=== PATIENT | female | born 2000 | race Caucasian/White ===

== ENCOUNTER 2021-06-25 16:57 | Inpatient (IN) ==
--- NOTE | 2021-06-25 17:32 | Emergency Department Note ---
Impression & Plan Suicidal ideations, Mood disorder ED Provider Note NAME: RISA BAHENA AGE: 20 SEX: F : 2000 ARRIVES VIA: Walk-In INFORMANT: Patient ED PROVIDER(S): Harry Fitch DO CHIEF COMPLAINT: Suicidal plan HPI: Patient is a 20-year-old female who presents to the ER for suicidal plan to overdose on her medications. She has had this plan for the past week. She was feeling so uncomfortable and could not trust herself with these medications and gave these medications to a friend. She denies any auditory or visual hallucinations. She does have a history of bipolar and psychotic features. She denies any headache or change in vision. No belly pain, nausea, vomiting, or diarrhea. She notes that she did cut her arms as she was mad earlier today. She feels unsafe going home does want to come in. She is referred in. ROS: See above HPI for pertinent positives & negatives. A total of 10 systems reviewed and were otherwise negative. PAST MEDICAL HISTORY:See Below PAST SURGICAL HISTORY:See Below FAMILY HISTORY:See Below SOCIAL HISTORY:See Below HOME MEDICATIONS:See Below ALLERGIES:See Below VITALS:See Below PHYSICAL EXAMINATION: GENERAL: Sitting up in bed, alert, well appearing, well nourished, no distress, non-toxic EYE EXAM: normal conjunctiva. OROPHARYNX: no exudate, no erythema, lips, buccal mucosa, and tongue normal and mucous membranes are moist NECK: supple, no nuchal rigidity, no adenopathy, non-tender LUNGS: Clear to auscultation. Normal chest wall mechanics HEART: no murmurs, S1 normal and S2 normal ABDOMEN: abdomen soft, non-tender, normo-active bowel sounds, no masses, no rebound or guarding. UPPER EXTREMITIES: upper extremities are grossly normal. SKIN: Small superficial linear abrasions on left upper extremity LOWER EXTREMITIES: No pitting edema. NEURO EXAM: Normal sensorium, cranial nerves II-XII grossly intact, normal speech, no gross weakness of arms, no gross weakness of legs. PSYCH: Admits to a suicidal plan to overdose on medications. No auditory visualizations. MEDICAL DECISION MAKING: Patient is a 20-year-old female who presents the ER for suicidal plan to overdose on medications. She does not feel safe at home anymore and cannot trust herself. She denies any auditory visual hallucinations. She is a past medical history of bipolar disorder. Labs show no significant leukocytosis or anemia. BMP with LFTs bilirubin and hCG was negative. Total protein slightly elevated. Urine was clean. Tox was negative. Alcohol was negative. Covid was negative. Patient was seen and evaluated and agreeable to coming on 201 referred to 3 S for admission. Triage Nursing notes reviewed. Limited review of prior medical records performed Vital Signs: reviewed and remarkable for no significant abnormalities Differential diagnosis: Mood disorder, infection, hypoglycemia, electrolyte abnormalities, cardiac sources, intracerebral event, toxicologic, trauma, neurologic, as well as other pathologies. ER treatment provided: See below Diagnostics interpreted by me: ECG: none Cardiac Monitoring: An order was placed for continuous cardiac monitoring. The monitor shows a rate of 80 with sinus rhythm. Laboratory studies: As stated above and show below. Imaging studies: See below Consultation(s): none Procedures: none Critical Care: None Past Med/Surg History Social History Smoking Status: Never smoker Preferred Language: Qatari Communication Ability: Effective Coating Technician Required: No Beliefs That Will Affect Care: None Feels Safe at Home: Yes Assistive Devices: Glasses Allergies Allergies Allergy/AdvReac Type Severity Reaction Status Date / Time ibuprofen AdvReac Unverified 06/25/21 23:55 Home Meds Home Medications Medication Instructions Recorded Confirmed Tl (28) 1 tab PO DAILY 06/25/21 06/25/21 hydroxyzine HCl 25 mg PO 06/25/21 risperidone 0.5 mg tablet 1.5 mg PO DAILY 06/25/21 06/25/21 Results & Data (ED) Vital Signs Vital Signs - 24 hr 06/25/21 20:07 Pulse Rate [Finger] 87 Respiratory Rate 20 Respiratory Depth Normal Blood Pressure [Left Arm] 118/70 Blood Pressure Mean [Left Arm] 86 Pulse Oximetry 98 Oxygen Delivery Method Room Air Laboratory Data Result diagrams: 06/25/21 17:42 06/25/21 17:42 Lab Results 06/25/21 06/25/21 06/25/21 Range/Units 17:42 17:42 17:42 WBC 5.95 (4.8-10.8) K/uL RBC 4.91 (4.2-5.4) M/uL Hgb 15.4 (12.0-16.0) g/dL Hct 44.1 (37-47) % MCV 89.8 (80-100) fL MCH 31.4 (25-34) pg MCHC 34.9 (32-36) g/dL RDW Std Deviation 41.4 (36.4-46.3) fL RDW Coeff of Shyann 12.8 (11.5-14.5) % Plt Count 287 (130-400) K/uL MPV 9.7 (7.4-10.4) fL Immature Gran % (Auto) 0.2 % Neut % (Auto) 52.9 % Lymph % (Auto) 42.9 % [place] % (Auto) 3.2 % Eos % (Auto) 0.5 % Baso % (Auto) 0.3 % Neut # (Auto) 3.15 (1.4-6.5) K/uL Lymph # (Auto) 2.55 (1.2-3.4) K/uL [place] # (Auto) 0.19 (0.11-0.59) K/uL Eos # (Auto) 0.03 (0-0.5) K/uL Baso # (Auto) 0.02 (0-0.2) K/uL Immature Gran # (Auto) 0.01 (0.00-0.02) K/uL Sodium 137 (136-145) mmol/L Potassium 3.7 (3.5-5.1) mmol/L Chloride 104 (98-107) mmol/L Carbon Dioxide 28 (21-32) mmol/L Anion Gap 5.0 (3-11) BUN 7 (7-18) mg/dl Creatinine 0.87 (0.6-1.2) mg/dl Est Cr Clr Drug Dosing 84.1 ml/min Est GFR ( Amer) 111.9 ml/min Est GFR (Non-Af Amer) 96.6 ml/min BUN/Creatinine Ratio 8.3 L (10-20) Glucose 94 (70-99) mg/dl Calcium 9.4 (8.5-10.1) mg/dl Total Bilirubin 0.3 (0.2-1) mg/dl AST 17 (15-37) U/L ALT 18 (12-78) U/L Alkaline Phosphatase 90 (45-117) U/L Total Protein 8.8 H (6.4-8.2) gm/dl Albumin 4.4 (3.4-5.0) gm/dl Globulin 4.4 H (2.5-4.0) gm/dl Albumin/Globulin Ratio 1.0 (0.9-2) TSH 1.580 (0.300-4.500) uIu/ml HCG, Qual (Negative) Urine Color Urine Appearance (Clear) Urine pH (4.5-7.5) Ur Specific [place] (1.000-1.030) Urine Protein (Negative) Urine Glucose (UA) (Negative) Urine Ketones (Negative) Urine Blood (Negative) Urine Nitrite (Negative) Urine Bilirubin (Negative) Urine Urobilinogen (Negative) Ur Leukocyte Esterase (Negative) Salicylates < 1.7 L (2.8-20) mg/dl Urine Opiates Screen (Neg) Ur Methadone, Qual (Neg) Acetaminophen < 2 L (10-30) ug/ml Urine Barbiturates (Neg) Ur Phencyclidine (PCP) (Neg) U Amphetamin/Meth Scrn (Neg) MDMA (Ecstasy) Screen (Neg) U Benzodiazepines Scrn (Neg) Ur Cocaine Metabolite (Neg) U Marijuana (THC) Screen (Neg) Ethyl Alcohol mg/dL (0-3) mg/dl COVID-19 Eval Order SARS-CoV-2, RNA, NAAT (NEGATIVE) 06/25/21 06/25/21 06/25/21 Range/Units 17:42 17:42 17:42 WBC (4.8-10.8) K/uL RBC (4.2-5.4) M/uL Hgb (12.0-16.0) g/dL Hct (37-47) % MCV (80-100) fL MCH (25-34) pg MCHC (32-36) g/dL RDW Std Deviation (36.4-46.3) fL RDW Coeff of Shyann (11.5-14.5) % Plt Count (130-400) K/uL MPV (7.4-10.4) fL Immature Gran % (Auto) % Neut % (Auto) % Lymph % (Auto) % [place] % (Auto) % Eos % (Auto) % Baso % (Auto) % Neut # (Auto) (1.4-6.5) K/uL Lymph # (Auto) (1.2-3.4) K/uL [place] # (Auto) (0.11-0.59) K/uL Eos # (Auto) (0-0.5) K/uL Baso # (Auto) (0-0.2) K/uL Immature Gran # (Auto) (0.00-0.02) K/uL Sodium (136-145) mmol/L Potassium (3.5-5.1) mmol/L Chloride (98-107) mmol/L Carbon Dioxide (21-32) mmol/L Anion Gap (3-11) BUN (7-18) mg/dl Creatinine (0.6-1.2) mg/dl Est Cr Clr Drug Dosing ml/min Est GFR ( Amer) ml/min Est GFR (Non-Af Amer) ml/min BUN/Creatinine Ratio (10-20) Glucose (70-99) mg/dl Calcium (8.5-10.1) mg/dl Total Bilirubin (0.2-1) mg/dl AST (15-37) U/L ALT (12-78) U/L Alkaline Phosphatase (45-117) U/L Total Protein (6.4-8.2) gm/dl Albumin (3.4-5.0) gm/dl Globulin (2.5-4.0) gm/dl Albumin/Globulin Ratio (0.9-2) TSH (0.300-4.500) uIu/ml HCG, Qual Negative (Negative) Urine Color Yellow Urine Appearance Clear (Clear) Urine pH 8.5 H (4.5-7.5) Ur Specific [place] 1.016 (1.000-1.030) Urine Protein Negative (Negative) Urine Glucose (UA) Negative (Negative) Urine Ketones Negative (Negative) Urine Blood Negative (Negative) Urine Nitrite Negative (Negative) Urine Bilirubin Negative (Negative) Urine Urobilinogen Negative (Negative) Ur Leukocyte Esterase Negative (Negative) Salicylates (2.8-20) mg/dl Urine Opiates Screen (Neg) Ur Methadone, Qual (Neg) Acetaminophen (10-30) ug/ml Urine Barbiturates (Neg) Ur Phencyclidine (PCP) (Neg) U Amphetamin/Meth Scrn (Neg) MDMA (Ecstasy) Screen (Neg) U Benzodiazepines Scrn (Neg) Ur Cocaine Metabolite (Neg) U Marijuana (THC) Screen (Neg) Ethyl Alcohol mg/dL < 3.0 (0-3) mg/dl COVID-19 Eval Order SARS-CoV-2, RNA, NAAT (NEGATIVE) 06/25/21 06/25/21 06/25/21 Range/Units 17:42 18:00 18:00 WBC (4.8-10.8) K/uL RBC (4.2-5.4) M/uL Hgb (12.0-16.0) g/dL Hct (37-47) % MCV (80-100) fL MCH (25-34) pg MCHC (32-36) g/dL RDW Std Deviation (36.4-46.3) fL RDW Coeff of Shyann (11.5-14.5) % Plt Count (130-400) K/uL MPV (7.4-10.4) fL Immature Gran % (Auto) % Neut % (Auto) % Lymph % (Auto) % [place] % (Auto) % Eos % (Auto) % Baso % (Auto) % Neut # (Auto) (1.4-6.5) K/uL Lymph # (Auto) (1.2-3.4) K/uL [place] # (Auto) (0.11-0.59) K/uL Eos # (Auto) (0-0.5) K/uL Baso # (Auto) (0-0.2) K/uL Immature Gran # (Auto) (0.00-0.02) K/uL Sodium (136-145) mmol/L Potassium (3.5-5.1) mmol/L Chloride (98-107) mmol/L Carbon Dioxide (21-32) mmol/L Anion Gap (3-11) BUN (7-18) mg/dl Creatinine (0.6-1.2) mg/dl Est Cr Clr Drug Dosing ml/min Est GFR ( Amer) ml/min Est GFR (Non-Af Amer) ml/min BUN/Creatinine Ratio (10-20) Glucose (70-99) mg/dl Calcium (8.5-10.1) mg/dl Total Bilirubin (0.2-1) mg/dl AST (15-37) U/L ALT (12-78) U/L Alkaline Phosphatase (45-117) U/L Total Protein (6.4-8.2) gm/dl Albumin (3.4-5.0) gm/dl Globulin (2.5-4.0) gm/dl Albumin/Globulin Ratio (0.9-2) TSH (0.300-4.500) uIu/ml HCG, Qual (Negative) Urine Color Urine Appearance (Clear) Urine pH (4.5-7.5) Ur Specific [place] (1.000-1.030) Urine Protein (Negative) Urine Glucose (UA) (Negative) Urine Ketones (Negative) Urine Blood (Negative) Urine Nitrite (Negative) Urine Bilirubin (Negative) Urine Urobilinogen (Negative) Ur Leukocyte Esterase (Negative) Salicylates (2.8-20) mg/dl Urine Opiates Screen Neg (Neg) Ur Methadone, Qual Neg (Neg) Acetaminophen (10-30) ug/ml Urine Barbiturates Neg (Neg) Ur Phencyclidine (PCP) Neg (Neg) U Amphetamin/Meth Scrn Neg (Neg) MDMA (Ecstasy) Screen Neg (Neg) U Benzodiazepines Scrn Neg (Neg) Ur Cocaine Metabolite Neg (Neg) U Marijuana (THC) Screen Neg (Neg) Ethyl Alcohol mg/dL (0-3) mg/dl COVID-19 Eval [facility] SARS-CoV-2, RNA, NAAT NEGATIVE (NEGATIVE) Administered Medications Cryselle 0.3mg/0. 03mg: Non-Formulary Patient's Own Med 1 ea PO QAM SANCHO Stop: 07/26/21 08:59 Last Admin: 06/26/21 09:55 Dose: 1 ea Documented by: [id number] Discharge Plan Visit Data Chief Complaint: Mental Health Evaluation Stated Complaint: CRISIS ED Provider: Harry Fitch Discharge Problem: Suicidal ideations, Mood disorder Patient Disposition: Admitted As Inpatient Discharge Instructions Interventions: ED Discharge Assessment Last Done: 06/25/21 22:08
[2021-06-25 17:54] LABS: Appearance Urine Clear (Clear); Bilirubin Urine Negative (Negative); Blood Urine Negative (Negative); Color Urine Yellow; Glucose Urine UA Negative (Negative); Ketones Urine Negative (Negative); Leukocyte Esterase Urine Negative (Negative); Nitrite Urine Negative (Negative); Protein Urine Negative (Negative); Specific Gravity Urine 1.016 (1.000-1.030); Urobilinogen Urine Negative (Negative); pH Urine 8.5 (4.5-7.5)
[2021-06-25 18:16] LABS: Basophils # (auto) 0.02 K/uL (0-0.2); Basophils % (auto) 0.3 %; Eosinophils # (auto) 0.03 K/uL (0-0.5); Eosinophils % (auto) 0.5 %; Hematocrit (blood only) 44.1 % (37-47); Hemoglobin 15.4 g/dL (12.0-16.0); Immature Granulocytes # (auto) 0.01 K/uL (0.00-0.02); Immature Granulocytes % (auto) 0.2 %; Lymphocytes # (auto) 2.55 K/uL (1.2-3.4); Lymphocytes % (auto) 42.9 %; Mean Corpuscular Hemoglobin 31.4 pg (25-34); Mean Corpuscular Hgb Conc 34.9 g/dL (32-36); Mean Corpuscular Volume 89.8 fL (80-100); Mean Platelet Volume 9.7 fL (7.4-10.4); Monocytes # (auto) 0.19 K/uL (0.11-0.59); Monocytes % (auto) 3.2 %; Neutrophils # (auto) 3.15 K/uL (1.4-6.5); Neutrophils % (auto) 52.9 %; Platelet Count 287 K/uL (130-400); RDW Coefficient of Variation 12.8 % (11.5-14.5); RDW Standard Deviation 41.4 fL (36.4-46.3); Red Blood Count 4.91 M/uL (4.2-5.4); White Blood Count 5.95 K/uL (4.8-10.8)
[2021-06-25 18:25] LABS: Amphetamines+Metham, Urine Neg (Neg); Barbiturates, Urine Neg (Neg); Benzodiazepine, Urine Neg (Neg); Cocaine, Urine Neg (Neg); MDMA (Ecstacy), Urine Neg (Neg); Methadone, Urine Neg (Neg); Opiate, Urine Neg (Neg); Phencyclidine, Urine Neg (Neg)
[2021-06-25 18:37] LABS: Albumin Level 4.4 gm/dl (3.4-5.0); BUN Creatinine Ratio 8.3 (10-20); Calcium 9.4 mg/dl (8.5-10.1); Creatinine Clr Calc Pharmacy 84.1 ml/min; Est GFR (African American) 111.9 ml/min; Est GFR (Non-African American) 96.6 ml/min; Potassium 3.7 mmol/L (3.5-5.1)
[2021-06-25 18:44] LABS: Acetaminophen < 2 ug/ml (10-30)
[2021-06-25 18:45] LABS: Salicylate < 1.7 mg/dl (2.8-20)
[2021-06-25 18:47] LABS: Bilirubin,Total 0.3 mg/dl (0.2-1); Globulin 4.4 gm/dl (2.5-4.0); Thyroid Stimulating Hormone 1.58 uIu/ml (0.300-4.500); Total Protein 8.8 gm/dl (6.4-8.2)
[2021-06-25 18:51] LABS: Pregnancy Test, Serum Negative (Negative)
[2021-06-25] MEDS ORDERED: MAGNESIUM HYDROXIDE SUSP 30 ML UDC PO PRN ×2 (21:58→22:39)
[2021-06-25] MEDS ORDERED: ACETAMINOPHEN 325 MG TAB PO PRN ×2 (21:58→22:39)
[2021-06-25] MEDS ORDERED: SODIUM CHLORIDE 0.65% NA SOLN 45 ML (OCEAN) PRN ×2 (21:58→22:39)
[2021-06-25] MEDS ORDERED: BISMUTH SUBSALICYLATE LIQD 236 ML PO PRN ×2 (21:58→22:39)
[2021-06-25] MEDS ORDERED: hydrOXYzine HCl 25 MG TAB PO PRN ×3 (21:58→22:39)
[2021-06-25] MEDS ORDERED: ALUMINUM/MAGNESIUM SUSP 30 ML UDC PO PRN ×2 (21:58→22:39)
[2021-06-26] MEDS ORDERED: NON-FORMULARY PATIENT'S OWN MED SCH (09:00)
[2021-06-26] MEDS: ETHINYL ESTRADIOL PO SCH (09:55)
[2021-06-26] MEDS: NORGESTREL PO SCH (09:55)
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
[2021-06-26] MEDS: hydrOXYzine HCl 25 MG TAB PO PRN (17:34)
[2021-06-26] MEDS ORDERED: risperiDONE 1 MG TABLET PO SCH (22:00)
[2021-06-26] MEDS ORDERED: LITHIUM CARBONATE SLOW REL 300 MG TAB PO SCH (22:00)
[2021-06-27 08:43] LABS: Glucose Fasting 79 mg/dl (70-99)
[2021-06-27] MEDS: NORGESTREL PO SCH (08:43)
[2021-06-27] MEDS: ETHINYL ESTRADIOL PO SCH (08:43)
[2021-06-27 08:51] LABS: Chol HDL Ratio 5; Cholesterol 192 mg/dl (0-200); HDL Cholesterol 42 mg/dl; LDL Cholesterol Calculated 136 mg/dl; Triglycerides 69 mg/dl (0-150); VLDL Cholesterol 14 mg/dl
[2021-06-27] MEDS: LITHIUM CARBONATE SLOW REL 300 MG TAB PO SCH ×2 (13:45→21:31)
--- NOTE | 2021-06-27 16:14 | Psychiatric Progress Note ---
Date of Service June 27, 2021 Impression / Recommendations Impression 20 yo female with a history of ernesto and primarily depressive episodes at times associated with psychotic features. Mother reports grandmother dx schizoaffective disorder and is worried for patient. Ongoing depression despite some response to Risperdal. Was scheduled to start lithium as an outpatient for depression given past worsening on an SSRI. 06/27/21--tolerated first dose of lithium, more forthcoming with previous symptoms and additional dx added as clearly ED symptoms are more active than initially admitted to on presentation. (1) Bipolar 1 disorder, depressed: (2) Avoidant and restrictive food intake disorder: (3) Obsessive compulsive disorder: 06/27/21: official starting dose of [place] 300 mg BID, shift previous total daily dose of Risperdal to 1.5 mg po qhs. Patient is agreeable to an EKG, syncopal episodes sounds ED related but will evaluate Qtc. Patient's HEALS appointment will need rescheduled. 06/26/21: The patient was [facility] on q15 min checks (behavioral with suicide precautions) for safety. The patient will participate in group, recreational, and milieu therapies and will be offered additional individual and family sessions as clinically appropriate. Risks/benefits/alternatives reviewed re: Risperdal and lithium. Discussion included but was not limited to risks of TD and metabolic abnormalities. Fasting metabolic labs will be ordered in am. She denies galatorrhea or change in menses. Discussion re: lithium surrounded potential teratogenecity and toxicity in OD and need to monitor labs for level and thyroid function. She was agreeable to start lithium 300 mg this hs as previously discussed with [facility] provider. Inventory Assets Strengths: intelligent, help seeking behavior Needs: safety plan Risk Factors Assessment : Yes Do You Have Access To A Gun?: No Mental Health Diagnoses: Yes Substance Use Disorders: No Previous Attempt: Yes Family History of Suicide: Yes Previous Psychiatric Hospitalization: No Protective Factors Assessment Employed: No Stable Relationships: Yes Supportive Family: Yes Good Rapport with Provider: Yes Interval History Identifying Information 20 yo female with hx of manic and psychotic symptoms admit on 201 for depression with SI with recent attempt to walk into traffic. Chief Complaint "It's like a competition with myself". Review of Systems Sleep Information Total Hours of Sleep: 7.25 Meal Information Percent Meal Consumed - Breakfast: 80 Percent Meal Consumed - Lunch: 100 Percent Meal Consumed - Dinner: 50 Subjective Subjective Patient was seen & assessed and interval progress reviewed with nursing and social work. Patient reported anxiety with meals yesterday and the feeling of spiders in her mouth returning. Patient elaborates 1-on-1 denying there is any actual tactile sensation. "I feel upset eating and I get this idea and I know it's not true but then I need to stop and open my mouth to let them out or feel a sense of doom". On further questioning she describes other ritualistic and compulsive behaviors, some of them around her meal schedule/class routine but others her am and hs routine. Since a child she has had to brush her teeth (sometimes more than once if doesn't feel enough) and then will urinate and then shower, always in that order. In the past she thought something bad might happen to her mom if she didn't do it right. If she doesn't get to eat at the time she is supposed to she believes she will gain weight as "I restricted for so long that I messed up my metabolism". 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 Here feels stress to be the perfect patient and get better the fastest and worries significantly about her past paranoia and grandmothers dx of schizoaffective disorder and what that means for her, particularly as once saw an image of a blonde man on a horse and that is something her grandmother once described. She denies paranoia and states that main symptoms in past were prior to antipsychotic medication and included belief that there were cameras in some sharma her father got her during "one of my manic phases". She becomes tearful thinking about research and graduate school. She states she refused to have a [facility] assessment last semester but is currently scheduled. She also reports syncopal episode in a late am class within past 2 weeks, she was scheduled to eat her breakfast but had not eaten. First time she is revealing this to a medical provider. Physical Exam Psychiatric Orientation: alert and oriented x 3 Apperance: appropriately dressed and appropriately groomed Eye Contact: good eye contact Motor Behavior: no abnormal motor movements Speech: normal rate/rhythm/volume of speech Affect: + depressed affect and + tearful affect Mood: + depressed mood Thought Process: goal directed thought process Thought Content: reality based without delusions Suicidal Thoughts: denies suicidal plan (on unit, unable to safety contract at this time); + reports suicidal thoughts Homicidal Thoughts: denies homicidal thoughts Hallucinations: no auditory hallucinations and no visual hallucinations Cognition: attention grossly intact and language grossly intact Estimated Intelligence: consistent with education level Insight: + fair insight Judgement: + fair judgement Vital Signs (Past 24 Hours) Last Vital Signs Temp 36.6 C 06/27/21 06:50 Pulse 90 06/27/21 06:50 Resp 16 06/27/21 06:50 BP 103/68 06/27/21 06:50 Pulse Ox 98 06/25/21 20:07 Results & Data ([facility]) Laboratory Results Laboratory Results - last 24 hr 06/27/21 07:46 Fasting Glucose 79 Triglycerides 69 Cholesterol 192 LDL Cholesterol, Calc 136 VLDL Cholesterol, Calc 14 HDL Cholesterol 42 Cholesterol/HDL Ratio 5 Current Inpatient Medications Current Inpatient Medications: Current Inpatient Medications Acetaminophen (Acetaminophen 325 Mg Tab) 650 mg PO Q4H PRN PRN Reason: Headache or Minor Fever Stop: 07/25/21 22:38 Al Hydrox/Mg Hydrox/Simethicone (Aluminum/Magnesium Susp 30 Ml Udc) 30 ml PO Q4H PRN PRN Reason: GI Upset Stop: 07/25/21 22:38 Bismuth Subsalicylate (Bismuth Subsalicylate Liqd 236 Ml) 15 ml PO PRN PRN PRN Reason: Loose Stool Stop: 07/25/21 22:38 Hydroxyzine HCl (Hydroxyzine Hcl 25 Mg Tab) 50 mg PO HSZ PRN PRN Reason: Insomnia Stop: 07/25/21 22:38 Hydroxyzine HCl (Hydroxyzine Hcl 25 Mg Tab) 25 mg PO Q4H PRN PRN Reason: Anxiety Stop: 07/25/21 22:38 Last Admin: 06/26/21 17:34 Dose: 25 mg Documented by: [place] Carbonate ([place] Carbonate Slow Rel 300 Mg Tab) 300 mg PO BID [place] Stop: 07/27/21 13:29 Last Admin: 06/27/21 13:45 Dose: 300 mg Documented by: Magnesium Hydroxide (Magnesium Hydroxide Susp 30 Ml Udc) 30 ml PO DAILY PRN PRN Reason: Constipation Stop: 07/25/21 22:38 Last Admin: 06/27/21 10:19 Dose: 30 ml Documented by: Arturoselle 0.3mg/0. 03mg: Non-Formulary Patient's Own Med 1 ea PO QAM SANCHO Stop: 07/26/21 08:59 Last Admin: 06/27/21 08:43 Dose: 1 ea Documented by: Risperidone (Risperidone 0.5 Mg Tablet) 1.5 mg PO HS SANCHO Stop: 07/27/21 21:59 Sodium Chloride (Sodium Chloride 0.65% Na Soln 45 Ml ([place])) 1 - 2 sprays NA PRN PRN PRN Reason: Nasal Dryness/Congestion Stop: 07/25/21 22:38 Mental Health & Subst Abuse Tx Therapist Name of Therapist: Bharati carey [facility] Prosthetic Makeup Designer Name of Prosthetic Makeup Designer: N/A Post Discharge Appointments Primary Care Physician Name Of Family Doctor: N/a
[2021-06-27] MEDS: risperiDONE 0.5 MG TABLET PO SCH (21:30)
[2021-06-28] MEDS: LITHIUM CARBONATE SLOW REL 300 MG TAB PO SCH ×2 (08:45→21:25)
[2021-06-28] MEDS: ETHINYL ESTRADIOL PO SCH (08:46)
[2021-06-28] MEDS: NORGESTREL PO SCH (08:46)
--- NOTE | 2021-06-28 15:53 | Electrocardiogram Report ---
Test Reason : Blood Pressure : / mmHG Vent. Rate : 076 BPM Atrial Rate : 076 BPM P-R Int : 128 ms QRS Dur : 086 ms QT Int : 382 ms P-R-T Axes : -03 081 049 degrees QTc Int : 429 ms Normal sinus rhythm with sinus arrhythmia Normal ECG No previous ECGs available Confirmed by Kenneth Dobson ([id number]) on 06/28/2021 3:53:22 PM Referred By: REFERRED SELF Confirmed By:Kenneth Dobson
--- NOTE | 2021-06-28 16:46 | Psychiatric Progress Note ---
Date of Service June 28, 2021 Impression / Recommendations Impression 20 yo female with a history of ernesto and primarily depressive episodes at times associated with psychotic features. Mother reports grandmother dx schizoaffective disorder and is worried for patient. Ongoing depression despite some response to Risperdal. Was scheduled to start lithium as an outpatient for depression given past worsening on an SSRI. 06/28/21--mood improving, tolerating medications (1) Bipolar 1 disorder, depressed: (2) Avoidant and restrictive food intake disorder: (3) Obsessive compulsive disorder: 06/28/21: coordinated care with outpatient prescriber, discussed titrating lithium to level 0.8 minimum prior to any retrial of a low dose of less activating SSRI (ex 12.5 or 25 mg Luvox) with very slow titration in the future if needed. [place] level ordered for 07/01/21. 06/27/21: official starting dose of [place] 300 mg BID, shift previous total daily dose of Risperdal to 1.5 mg po qhs. Patient is agreeable to an EKG, syncopal episodes sounds ED related but will evaluate Qtc. Patient's HEALS appointment will need rescheduled. 06/26/21: The patient was [facility] ([facility] inpatient mental health unit) on q15 min checks (behavioral with suicide precautions) for safety. The patient will participate in group, recreational, and milieu therapies and will be offered additional individual and family sessions as clinically appropriate. Risks/benefits/alternatives reviewed re: Risperdal and lithium. Discussion included but was not limited to risks of TD and metabolic abnormalities. Fasting metabolic labs will be ordered in am. She denies galatorrhea or change in menses. Discussion re: lithium surrounded potential teratogenecity and toxicity in OD and need to monitor labs for level and thyroid function. She was agreeable to start lithium 300 mg this hs as previously discussed with [facility] provider. Inventory Assets Strengths: intelligent, help seeking behavior Needs: safety plan Risk Factors Assessment : Yes Do You Have Access To A Gun?: No Mental Health Diagnoses: Yes Substance Use Disorders: No Previous Attempt: Yes Family History of Suicide: Yes Previous Psychiatric Hospitalization: No Protective Factors Assessment Employed: No Stable Relationships: Yes Supportive Family: Yes Good Rapport with Provider: Yes Interval History Identifying Information 20 yo female with hx of manic and psychotic symptoms admit on 201 for depression with SI with recent attempt to walk into traffic. Chief Complaint "I felt better last night and worried I was becoming manic". Review of Systems Sleep Information Total Hours of Sleep: 8 Meal Information Percent Meal Consumed - Breakfast: 100 Percent Meal Consumed - Lunch: 90 Percent Meal Consumed - Dinner: 75 Subjective Subjective Patient was seen & assessed and interval progress reviewed with treatment team. cooperative and less anxious with unit routines, accepting that she is hospitalized and not attending classes today. Meals are creating less anxiety. She denies medication related side effects. Physical Exam Psychiatric Orientation: alert and oriented x 3 Apperance: appropriately dressed and appropriately groomed Eye Contact: good eye contact Motor Behavior: no abnormal motor movements Speech: normal rate/rhythm/volume of speech Affect: euthymic affect Mood: + depressed mood Thought Process: goal directed thought process Thought Content: reality based without delusions Suicidal Thoughts: denies suicidal thoughts and denies suicidal plan Homicidal Thoughts: denies homicidal thoughts Hallucinations: no auditory hallucinations and no visual hallucinations Cognition: attention grossly intact and language grossly intact Estimated Intelligence: consistent with education level Insight: + fair insight Judgement: + fair judgement Vital Signs (Past 24 Hours) Last Vital Signs Temp 36.7 C 06/28/21 06:38 Pulse 78 06/28/21 06:39 Resp 16 06/28/21 06:38 BP 112/78 06/28/21 06:39 Pulse Ox 98 06/25/21 20:07 Results & Data ([facility]) Current Inpatient Medications Current Inpatient Medications: Current Inpatient Medications Acetaminophen (Acetaminophen 325 Mg Tab) 650 mg PO Q4H PRN PRN Reason: Headache or Minor Fever Stop: 07/25/21 22:38 Al Hydrox/Mg Hydrox/Simethicone (Aluminum/Magnesium Susp 30 Ml Udc) 30 ml PO Q4H PRN PRN Reason: GI Upset Stop: 07/25/21 22:38 Bismuth Subsalicylate (Bismuth Subsalicylate Liqd 236 Ml) 15 ml PO PRN PRN PRN Reason: Loose Stool Stop: 07/25/21 22:38 Hydroxyzine HCl (Hydroxyzine Hcl 25 Mg Tab) 50 mg PO HSZ PRN PRN Reason: Insomnia Stop: 07/25/21 22:38 Hydroxyzine HCl (Hydroxyzine Hcl 25 Mg Tab) 25 mg PO Q4H PRN PRN Reason: Anxiety Stop: 07/25/21 22:38 Last Admin: 06/26/21 17:34 Dose: 25 mg Documented by: [place] Carbonate ([place] Carbonate Slow Rel 300 Mg Tab) 300 mg PO BID SANCHO Stop: 07/27/21 13:29 Last Admin: 06/28/21 08:45 Dose: 300 mg Documented by: Magnesium Hydroxide (Magnesium Hydroxide Susp 30 Ml Udc) 30 ml PO DAILY PRN PRN Reason: Constipation Stop: 07/25/21 22:38 Last Admin: 06/27/21 10:19 Dose: 30 ml Documented by: Tl 0.3mg/0. 03mg: Non-Formulary Patient's Own Med 1 ea PO QAM SAN[place] Stop: 07/26/21 08:59 Last Admin: 06/28/21 08:46 Dose: 1 ea Documented by: Risperidone (Risperidone 0.5 Mg Tablet) 1.5 mg PO HS SANCHO Stop: 07/27/21 21:59 Last Admin: 06/27/21 21:30 Dose: 1.5 mg Documented by: Sodium Chloride (Sodium Chloride 0.65% Na Soln 45 Ml ([place])) 1 - 2 sprays NA PRN PRN PRN Reason: Nasal Dryness/Congestion Stop: 07/25/21 22:38 Mental Health & Subst Abuse Tx Psychiatrist Name of Psychiatrist: PRISCILLA Melchor Date of Appointment with Psychiatrist: 06/30/21 Time of Appointment with Psychiatrist: 1:30 PM Psychiatric Appointment Comment: in-person Therapist Name of Therapist: PRISCILLA Calabrese Date of Therapist Appointment: 07/01/21 Time of Therapist Appointment: 1:00 PM Therapy Appointment Comment: in-person Banquet Cook Name of Banquet Cook: N/A Post Discharge Appointments Primary Care Physician Name Of Family Doctor: S Specialist Name of Specialist: HEALS program ([facility])
[2021-06-28] MEDS: risperiDONE 0.5 MG TABLET PO SCH (21:26)
[2021-06-29] MEDS: NORGESTREL PO SCH (09:05)
[2021-06-29] MEDS: LITHIUM CARBONATE SLOW REL 300 MG TAB PO SCH ×2 (09:05→21:20)
[2021-06-29] MEDS: ETHINYL ESTRADIOL PO SCH (09:05)
--- NOTE | 2021-06-29 19:45 | Psychiatric Progress Note ---
Date of Service June 29, 2021 Impression / Recommendations Impression 20 yo female with a history of ernesto and primarily depressive episodes at times associated with psychotic features. Mother reports grandmother dx schizoaffective disorder and is worried for patient. Ongoing depression despite some response to Risperdal. Was scheduled to start lithium as an outpatient for depression given past worsening on an SSRI. 06/29/21--mood improving, tolerating medications (1) Bipolar 1 disorder, depressed: (2) Avoidant and restrictive food intake disorder: (3) Obsessive compulsive disorder: 06/29/21: successful family session. Continue current meds and treatment plan. 06/28/21: coordinated care with outpatient prescriber, discussed titrating lithium to level 0.8 minimum prior to any retrial of a low dose of less activating SSRI (ex 12.5 or 25 mg Luvox) with very slow titration in the future if needed. [place] level ordered for 07/01/21. 06/27/21: official starting dose of [place] 300 mg BID, shift previous total daily dose of Risperdal to 1.5 mg po qhs. Patient is agreeable to an EKG, syncopal episodes sounds ED related but will evaluate Qtc. Patient's HEALS appointment will need rescheduled. 06/26/21: [facility] on q15 min checks (behavioral with suicide precautions) for safety. The patient will participate in group, recreational, and milieu therapies and will be offered additional individual and family sessions as clinically appropriate. Risks/benefits/alternatives reviewed re: Risperdal and lithium. Discussion included but was not limited to risks of TD and metabolic abnormalities. Fasting metabolic labs will be ordered in am. She denies galatorrhea or change in menses. Discussion re: lithium surrounded potential teratogenecity and toxicity in OD and need to monitor labs for level and thyroid function. She was agreeable to start lithium 300 mg this hs as previously discussed with [facility] provider. Inventory Assets Strengths: intelligent, help seeking behavior Needs: safety plan Risk Factors Assessment : Yes Do You Have Access To A Gun?: No Mental Health Diagnoses: Yes Substance Use Disorders: No Previous Attempt: Yes Family History of Suicide: Yes Previous Psychiatric Hospitalization: No Protective Factors Assessment Employed: No Stable Relationships: Yes Supportive Family: Yes Good Rapport with Provider: Yes Interval History Identifying Information 20 yo female with hx of manic and psychotic symptoms admit on 201 for depression with SI with recent attempt to walk into traffic. Chief Complaint "I'm nervous but also starting to feel better". Review of Systems Sleep Information Total Hours of Sleep: 6 Meal Information Percent Meal Consumed - Breakfast: 100 Percent Meal Consumed - Lunch: 85 Percent Meal Consumed - Dinner: 100 Subjective Subjective Patient was seen & assessed and interval progress reviewed with nursing and social work. I also participated in family session and reviewed diagnosis, med plan and need for longer term monitoring. All questions were answered to family's satisfaction and most concerned about her being truthful with treatment team to not urban discharge and also the spiders in mouth. Reviewed that OCD rather than tactile hallucination. Patient is tolerating medication and appears calmer and brighter in peer interactions. Physical Exam Psychiatric Orientation: alert and oriented x 3 Apperance: appropriately dressed and appropriately groomed Eye Contact: good eye contact Motor Behavior: no abnormal motor movements Speech: normal rate/rhythm/volume of speech Affect: + anxious affect Mood: + depressed mood Thought Process: goal directed thought process Thought Content: reality based without delusions Suicidal Thoughts: denies suicidal thoughts and denies suicidal plan Homicidal Thoughts: denies homicidal thoughts Hallucinations: no auditory hallucinations and no visual hallucinations Cognition: attention grossly intact and language grossly intact Estimated Intelligence: consistent with education level Insight: + fair insight Judgement: + fair judgement Vital Signs (Past 24 Hours) Last Vital Signs Temp 36.7 C 06/29/21 06:49 Pulse 91 H 06/29/21 06:49 Resp 16 06/29/21 06:49 BP 115/75 06/29/21 06:49 Pulse Ox 98 06/25/21 20:07 Results & Data ([facility] [[email or web address] Current Inpatient Medications Current Inpatient Medications: Current Inpatient Medications Acetaminophen (Acetaminophen 325 Mg Tab) 650 mg PO Q4H PRN PRN Reason: Headache or Minor Fever Stop: 07/25/21 22:38 Al Hydrox/Mg Hydrox/Simethicone (Aluminum/Magnesium Susp 30 Ml Udc) 30 ml PO Q4H PRN PRN Reason: GI Upset Stop: 07/25/21 22:38 Bismuth Subsalicylate (Bismuth Subsalicylate Liqd 236 Ml) 15 ml PO PRN PRN PRN Reason: Loose Stool Stop: 07/25/21 22:38 Hydroxyzine HCl (Hydroxyzine Hcl 25 Mg Tab) 50 mg PO HSZ PRN PRN Reason: Insomnia Stop: 07/25/21 22:38 Hydroxyzine HCl (Hydroxyzine Hcl 25 Mg Tab) 25 mg PO Q4H PRN PRN Reason: Anxiety Stop: 07/25/21 22:38 Last Admin: 06/26/21 17:34 Dose: 25 mg Documented by: [place] Carbonate ([place] Carbonate Slow Rel 300 Mg Tab) 300 mg PO BID SANCHO Stop: 07/27/21 13:29 Last Admin: 06/29/21 09:05 Dose: 300 mg Documented by: Magnesium Hydroxide (Magnesium Hydroxide Susp 30 Ml Udc) 30 ml PO DAILY PRN PRN Reason: Constipation Stop: 07/25/21 22:38 Last Admin: 06/27/21 10:19 Dose: 30 ml Documented by: [place] 0.3mg/0. 03mg: Non-Formulary Patient's Own Med 1 ea PO QAM [place] Stop: 07/26/21 08:59 Last Admin: 06/29/21 09:05 Dose: 1 ea Documented by: Risperidone (Risperidone 0.5 Mg Tablet) 1.5 mg PO HS SAN[place] Stop: 07/27/21 21:59 Last Admin: 06/28/21 21:26 Dose: 1.5 mg Documented by: Sodium Chloride (Sodium Chloride 0.65% Na Soln 45 Ml ([place])) 1 - 2 sprays NA PRN PRN PRN Reason: Nasal Dryness/Congestion Stop: 07/25/21 22:38 Mental Health & Subst Abuse Tx Psychiatrist Name of Psychiatrist: PRISCILLA Melchor Psychiatrist's Date of Appointment with Psychiatrist: 07/09/21 Time of Appointment with Psychiatrist: 11:30 a.m. Psychiatric Appointment Comment: In person Therapist Name of Therapist: PRISCILLA Calabrese Therapist's Date of Therapist Appointment: 07/01/21 Time of Therapist Appointment: 1:00 PM Therapy Appointment Comment: In person Aerial Photographer Name of Aerial Photographer: [employer] [facility] Joe Moore Phone Number for Aerial Photographer: [phone] Date of Appointment with Aerial Photographer: 07/02/21 Time of Appointment with Aerial Photographer: 3:00 p.m. Case Management Appointment Comment: [email or web address] Discharge Appointments Primary Care Physician Name Of Family Doctor: [facility] Primary Care Time of Appointment with PCP: Follow up as needed Provider Appointment Comment: [facility][Note 3] Specialist Name of Specialist: [facility] program Phone Number for Specialist: [phone] Contact Information Discharge Discharge Address: [address] [place] [id number]
[2021-06-29] MEDS: risperiDONE 0.5 MG TABLET PO SCH (21:20)
[2021-06-30] MEDS: NORGESTREL PO SCH (08:43)
[2021-06-30] MEDS: LITHIUM CARBONATE SLOW REL 300 MG TAB PO SCH ×2 (08:43→21:27)
[2021-06-30] MEDS: ETHINYL ESTRADIOL PO SCH (08:43)
[2021-06-30] MEDS: hydrOXYzine HCl 25 MG TAB PO PRN (14:56)
--- NOTE | 2021-06-30 18:22 | Psychiatric Progress Note ---
Date of Service June 30, 2021 Impression / Recommendations Impression 20 yo female with a history of ernesto and primarily depressive episodes at times associated with psychotic features. Mother reports grandmother dx schizoaffective disorder and is worried for patient. Ongoing depression despite some response to Risperdal. Was scheduled to start lithium as an outpatient for depression given past worsening on an SSRI. 06/30/21--tearful today around OCD and disposing of pills, is moving forward with treatment and safety plan. (1) Bipolar 1 disorder, depressed: (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 Dispose of hoarded medications. 06/29/21: successful family session. Continue current meds and treatment plan. 06/28/21: coordinated care with outpatient prescriber, discussed titrating lithium to level 0.8 minimum prior to any retrial of a low dose of less activating SSRI (ex 12.5 or 25 mg Luvox) with very slow titration in the future if needed. Central High level ordered for 07/01/21. 06/27/21: official starting dose of Central High 300 mg BID, shift previous total daily dose of Risperdal to 1.5 mg po qhs. Patient is agreeable to an EKG, syncopal episodes sounds ED related but will evaluate Qtc. Patient's HEALS appointment will need rescheduled. 06/26/21: The patient was admitted to the [facility] ([facility] unit) on q15 min checks (behavioral with suicide precautions) for safety. The patient will participate in group, recreational, and milieu therapies and will be offered additional individual and family sessions as clinically appropriate. Risks/benefits/alternatives reviewed re: Risperdal and lithium. Discussion included but was not limited to risks of TD and metabolic abnormalities. Fasting metabolic labs will be ordered in am. She denies galatorrhea or change in menses. Discussion re: lithium surrounded potential teratogenecity and toxicity in OD and need to monitor labs for level and thyroid function. She was agreeable to start lithium 300 mg this hs as previously discussed with [facility] provider. Inventory Assets Strengths: intelligent, help seeking behavior Needs: safety plan Risk Factors Assessment : Yes Do You Have Access To A Gun?: No Mental Health Diagnoses: Yes Substance Use Disorders: No Previous Attempt: Yes Family History of Suicide: Yes Previous Psychiatric Hospitalization: No Protective Factors Assessment Employed: No Stable Relationships: Yes Supportive Family: Yes Good Rapport with Provider: Yes Interval History Identifying Information 20 yo female with hx of manic and psychotic symptoms admit on 201 for depression with SI with recent attempt to walk into traffic. Chief Complaint "It's like giving up those pills is losing a part of me". Review of Systems Sleep Information Total Hours of Sleep: 6.5 Meal Information Percent Meal Consumed - Breakfast: 100 Percent Meal Consumed - Lunch: 70 Percent Meal Consumed - Dinner: 60 Subjective Subjective Patient was seen & assessed and interval progress reviewed with treatment team. Patient reports a friend will bring in the medications she has been hoarding since age 13. Denies any saving of pills for last several months but having the pills is reassuring to her and she related inability to part with other household objects as a child, like crying when family gets rid of tv. Discussed how she stored/moved the pills and plan to provide a list she can keep as somewhat involves her in the process of getting rid of them for safety concerns (Prozac, Ativan, etc.). Staff cataloging for destroyed by pharmacy. Physical Exam Psychiatric Orientation: alert and oriented x 3 Apperance: appropriately dressed and appropriately groomed Eye Contact: good eye contact Motor Behavior: no abnormal motor movements Speech: normal rate/rhythm/volume of speech Affect: + depressed affect, + anxious affect and + tearful affect Mood: + depressed mood Thought Process: goal directed thought process Thought Content: reality based without delusions Suicidal Thoughts: denies suicidal thoughts and denies suicidal plan Homicidal Thoughts: denies homicidal thoughts Hallucinations: no auditory hallucinations and no visual hallucinations Cognition: attention grossly intact and language grossly intact Estimated Intelligence: consistent with education level Insight: + fair insight Judgement: + fair judgement Vital Signs (Past 24 Hours) Last Vital Signs Temp 36.6 C 06/30/21 06:38 Pulse 73 06/30/21 06:38 Resp 16 06/30/21 06:38 BP 105/68 06/30/21 06:38 Pulse Ox 98 06/25/21 20:07 Results & Data ([facility]) Current Inpatient Medications Current Inpatient Medications: Current Inpatient Medications Acetaminophen (Acetaminophen 325 Mg Tab) 650 mg PO Q4H PRN PRN Reason: Headache or Minor Fever Stop: 07/25/21 22:38 Al Hydrox/Mg Hydrox/Simethicone (Aluminum/Magnesium Susp 30 Ml Udc) 30 ml PO Q4H PRN PRN Reason: GI Upset Stop: 07/25/21 22:38 Bismuth Subsalicylate (Bismuth Subsalicylate Liqd 236 Ml) 15 ml PO PRN PRN PRN Reason: Loose Stool Stop: 07/25/21 22:38 Hydroxyzine HCl (Hydroxyzine Hcl 25 Mg Tab) 50 mg PO HSZ PRN PRN Reason: Insomnia Stop: 07/25/21 22:38 Hydroxyzine HCl (Hydroxyzine Hcl 25 Mg Tab) 25 mg PO Q4H PRN PRN Reason: Anxiety Stop: 07/25/21 22:38 Last Admin: 06/30/21 14:56 Dose: 25 mg Documented by: Central High Carbonate (Central High Carbonate Slow Rel 300 Mg Tab) 300 mg PO BID SANCHO Stop: 07/27/21 13:29 Last Admin: 06/30/21 08:43 Dose: 300 mg Documented by: Magnesium Hydroxide (Magnesium Hydroxide Susp 30 Ml Udc) 30 ml PO DAILY PRN PRN Reason: Constipation Stop: 07/25/21 22:38 Last Admin: 06/27/21 10:19 Dose: 30 ml Documented by: Cryselle 0.3mg/0. 03mg: Non-Formulary Patient's Own Med 1 ea PO QAM SANCHO Stop: 07/26/21 08:59 Last Admin: 06/30/21 08:43 Dose: 1 ea Documented by: Risperidone (Risperidone 0.5 Mg Tablet) 1.5 mg PO HS SANCHO Stop: 07/27/21 21:59 Last Admin: 06/29/21 21:20 Dose: 1.5 mg Documented by: Sodium Chloride (Sodium Chloride 0.65% Na Soln 45 Ml (Park)) 1 - 2 sprays NA PRN PRN PRN Reason: Nasal Dryness/Congestion Stop: 07/25/21 22:38 Mental Health & Subst Abuse Tx Psychiatrist Name of Psychiatrist: PRISCILLA Melchor Psychiatrist's Date of Appointment with Psychiatrist: 07/09/21 Time of Appointment with Psychiatrist: 11:30 a.m. Psychiatric Appointment Comment: In person Therapist Name of Therapist: PRISCILLA Calabrese Therapist's Date of Therapist Appointment: 07/01/21 Time of Therapist Appointment: 1:00 PM Therapy Appointment Comment: In person Machining Manager Name of Machining Manager: [facility] Phone Number for Machining Manager: [phone] Date of Appointment with Machining Manager: 07/02/21 Time of Appointment with Machining Manager: 3:00 p.m. Case Management Appointment Comment: [email or web address] Discharge Appointments Primary Care Physician Name Of Family Doctor: [facility] Primary Care Time of Appointment with PCP: Follow up as needed Provider Appointment Comment: [facility] Specialist Name of Specialist: [facility] - DMITRY program - Dr. Esparza Phone Number for Specialist: [phone] Date of Appointment with Specialist: 07/12/21 Time of Appointment with Specialist: 3:40 p.m. Specialty Appointment Comment: [facility] Contact Information Discharge Discharge Address: [address] [place] [id number]
[2021-06-30] MEDS: risperiDONE 0.5 MG TABLET PO SCH (21:27)
[2021-07-01] MEDS: ETHINYL ESTRADIOL PO SCH (09:30)
[2021-07-01] MEDS: LITHIUM CARBONATE SLOW REL 300 MG TAB PO SCH (09:30)
[2021-07-01] MEDS: NORGESTREL PO SCH (09:30)
[2021-07-01] MEDS ORDERED: DESTROY THIS MEDICATION ONE ×2 (10:51→11:19)
--- NOTE | 2021-07-01 11:01 | Discharge Summary ---
Date of Service July 01, 2021 History of Present Illness 20 yo female, good student (dual major, recently admitted to [facility]) who reports onset of more significant mood swings and even psychotic symptoms in the setting of poor sleep in the past year. She sought care at [facility] last semester and started mood stabilizing medication having had a poor reaction to SSRI. She returned home to [facility] for the summer. 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 She denies purging. She states that summer "was horrible in general" as sleeping alot, not attending to ADLs and since returning to school she has had periods of not getting out of bed for a few days at time. At the same time she presents smiling. She reports Risperdal was started due to concerns about "this belief or feeling I had spiders in my mouth". When questioned about periods of elevated mood she adds that she felt impulsive last semester, tried MJ which is "totally unlike me" and was hypertalkative with people. Periods of elevated mood and hypertalkativeness with little need for sleep were noted in high school by teachers (in retrospect). She denies auditory of visual hallucinations at baseline or disorganization outside of a mood episode. She feels that Risperdal has "evened out the highs" but depression has only worsened. She does like it better than Seroquel as believes Seroquel was contributing to weight gain. Of particular concern is report of walking in to traffic last year as a suicide attempt and then trying this again last week. She did seek an urgent therapy appointment with [facility] and NALINI Rai recommended a trial of lithium which she hadn't started yet. She had given her medications to a friend as part of safety plan but "ended up just coming to the hospital". Physical Exam Mental Examination See admission H&P and DOD summary. Vital Signs (Past 24 Hours) Last Vital Signs Temp 36.8 C 07/01/21 06:56 Pulse 82 07/01/21 06:56 Resp 16 07/01/21 06:56 BP 103/65 07/01/21 06:56 Pulse Ox 98 06/25/21 20:07 Principal Diagnosis bipolar disorder Psychiatric Data See daily stay summary. In short, safety was maintained and the patient was cooperative with care. Medication changes included initiating trial of lithium. Her level was 0.5 on the day of discharge, given linear pharmacokinetics her dose was increase to 900 mg daily. A repeat level will be required by outpatient prescriber. A short supply was given due to toxicity in OD and hx of hoarding pills. Old supplies of Ativan, Seroquel, Prozac were disposed of during this hospitalization. This was triggering for patient given her OCD and she was provided a list of the medications as a way to involve her in the disposal process. Her H&P does not reflect the level of her OCD and current ED symptoms as she mimized them on admission. She is tolerating the medication well but remains hyperfocussed on risk of weight gain. Reviewed longer term risks associated with her medications and the need for monitoring. A family session was held with both of her parents and safety plan was completed prior to discharge. Day of Discharge Assessment Today the patient voices readiness for discharge. They note improvement in mood and deny thoughts to harm self or others. Thoughts remain organized and they are improved from admission. There is no evidence of psychosis. They agree to take mediations as prescribed and keep follow-up appointments. They are stable for discharge to outpatient level of care. Transition of Care Transition Of Care Record: was reviewed with the patient Advance Directives Advance Directives Information Provided: Yes Advance Directives: No Mental Health Advance Directive: No Advance Directives on File: No Living Will: No Power of Acid Conditioning Worker: No Advance Directives Reason:: Declines as Mental Health Visit. Risk Factors Assessment : Yes Do You Have Access To A Gun?: No Mental Health Diagnoses: Yes Substance Use Disorders: No Previous Attempt: Yes Family History of Suicide: Yes Previous Psychiatric Hospitalization: No Protective Factors Assessment Employed: No Stable Relationships: Yes Supportive Family: Yes Good Rapport with Provider: Yes Tobacco Cessation at Discharge Tobacco Cessation Medication Prescribed at Discharge: Not Applicable/Non-Smoker Total Time Total Time Spent: Greater Than 30 Minutes Total Time Includes: Examination of the patient, Discharge Planning, Medication Reconciliation and Communication with other providers Discharge Data Lab Results 06/25/21 06/25/21 06/25/21 17:42 17:42 17:42 WBC 5.95 RBC 4.91 Hgb 15.4 Hct 44.1 MCV 89.8 MCH 31.4 MCHC 34.9 RDW Std Deviation 41.4 RDW Coeff of Shyann 12.8 Plt Count 287 MPV 9.7 Immature Gran % (Auto) 0.2 Neut % (Auto) 52.9 Lymph % (Auto) 42.9 Robertson % (Auto) 3.2 Eos % (Auto) 0.5 Baso % (Auto) 0.3 Neut # (Auto) 3.15 Lymph # (Auto) 2.55 Robertson # (Auto) 0.19 Eos # (Auto) 0.03 Baso # (Auto) 0.02 Immature Gran # (Auto) 0.01 Sodium 137 Potassium 3.7 Chloride 104 Carbon Dioxide 28 Anion Gap 5.0 BUN 7 Creatinine 0.87 Est Cr Clr Drug Dosing 84.1 Est GFR ( Amer) 111.9 Est GFR (Non-Af Amer) 96.6 BUN/Creatinine Ratio 8.3 L Glucose 94 Fasting Glucose Calcium 9.4 Total Bilirubin 0.3 AST 17 ALT 18 Alkaline Phosphatase 90 Total Protein 8.8 H Albumin 4.4 Globulin 4.4 H Albumin/Globulin Ratio 1.0 Triglycerides Cholesterol LDL Cholesterol, Calc VLDL Cholesterol, Calc HDL Cholesterol Cholesterol/HDL Ratio TSH 1.580 HCG, Qual Urine Color Urine Appearance Urine pH Ur Specific [place] Urine Protein Urine Glucose (UA) Urine Ketones Urine Blood Urine Nitrite Urine Bilirubin Urine Urobilinogen Ur Leukocyte Esterase Salicylates < 1.7 L Urine Opiates Screen Ur Methadone, Qual Acetaminophen < 2 L Urine Barbiturates Ur Phencyclidine (PCP) U Amphetamin/Meth Scrn MDMA (Ecstasy) Screen U Benzodiazepines Scrn [place] Ur Cocaine Metabolite U Marijuana (THC) Screen Ethyl Alcohol mg/dL COVID-19 Eval Order SARS-CoV-2, RNA, NAAT 06/25/21 06/25/21 06/25/21 17:42 17:42 17:42 WBC RBC Hgb Hct MCV MCH MCHC RDW Std Deviation RDW Coeff of Shyann Plt Count MPV Immature Gran % (Auto) Neut % (Auto) Lymph % (Auto) Robertson % (Auto) Eos % (Auto) Baso % (Auto) Neut # (Auto) Lymph # (Auto) Robertson # (Auto) Eos # (Auto) Baso # (Auto) Immature Gran # (Auto) Sodium Potassium Chloride Carbon Dioxide Anion Gap BUN Creatinine Est Cr Clr Drug Dosing Est GFR ( Amer) Est GFR (Non-Af Amer) BUN/Creatinine Ratio Glucose Fasting Glucose Calcium Total Bilirubin AST ALT Alkaline Phosphatase Total Protein Albumin Globulin Albumin/Globulin Ratio Triglycerides Cholesterol LDL Cholesterol, Calc VLDL Cholesterol, Calc HDL Cholesterol Cholesterol/HDL Ratio TSH HCG, Qual Negative Urine Color Yellow Urine Appearance Clear Urine pH 8.5 H Ur Specific [place] 1.016 Urine Protein Negative Urine Glucose (UA) Negative Urine Ketones Negative Urine Blood Negative Urine Nitrite Negative Urine Bilirubin Negative Urine Urobilinogen Negative Ur Leukocyte Esterase Negative Salicylates Urine Opiates Screen Ur Methadone, Qual Acetaminophen Urine Barbiturates Ur Phencyclidine (PCP) U Amphetamin/Meth Scrn MDMA (Ecstasy) Screen U Benzodiazepines Scrn [place] Ur Cocaine Metabolite U Marijuana (THC) Screen Ethyl Alcohol mg/dL < 3.0 COVID-19 Eval Order SARS-CoV-2, RNA, NAAT 06/25/21 06/25/21 06/25/21 17:42 18:00 18:00 WBC RBC Hgb Hct MCV MCH MCHC RDW Std Deviation RDW Coeff of Shyann Plt Count MPV Immature Gran % (Auto) Neut % (Auto) Lymph % (Auto) Robertson % (Auto) Eos % (Auto) Baso % (Auto) Neut # (Auto) Lymph # (Auto) Robertson # (Auto) Eos # (Auto) Baso # (Auto) Immature Gran # (Auto) Sodium Potassium Chloride Carbon Dioxide Anion Gap BUN Creatinine Est Cr Clr Drug Dosing Est GFR ( Amer) Est GFR (Non-Af Amer) BUN/Creatinine Ratio Glucose Fasting Glucose Calcium Total Bilirubin AST ALT Alkaline Phosphatase Total Protein Albumin Globulin Albumin/Globulin Ratio Triglycerides Cholesterol LDL Cholesterol, Calc VLDL Cholesterol, Calc HDL Cholesterol Cholesterol/HDL Ratio TSH HCG, Qual Urine Color Urine Appearance Urine pH Ur Specific [place] Urine Protein Urine Glucose (UA) Urine Ketones Urine Blood Urine Nitrite Urine Bilirubin Urine Urobilinogen Ur Leukocyte Esterase Salicylates Urine Opiates Screen Neg Ur Methadone, Qual Neg Acetaminophen Urine Barbiturates Neg Ur Phencyclidine (PCP) Neg U Amphetamin/Meth Scrn Neg MDMA (Ecstasy) Screen Neg U Benzodiazepines Scrn Neg [place] Ur Cocaine Metabolite Neg U Marijuana (THC) Screen Neg Ethyl Alcohol mg/dL COVID-19 Eval [facility] SARS-CoV-2, RNA, NAAT NEGATIVE 06/27/21 07/01/21 07:46 09:09 WBC RBC Hgb Hct MCV MCH MCHC RDW Std Deviation RDW Coeff of Shyann Plt Count MPV Immature Gran % (Auto) Neut % (Auto) Lymph % (Auto) Robertson % (Auto) Eos % (Auto) Baso % (Auto) Neut # (Auto) Lymph # (Auto) Robertson # (Auto) Eos # (Auto) Baso # (Auto) Immature Gran # (Auto) Sodium Potassium Chloride Carbon Dioxide Anion Gap BUN Creatinine Est Cr Clr Drug Dosing Est GFR ( Amer) Est GFR (Non-Af Amer) BUN/Creatinine Ratio Glucose Fasting Glucose 79 Calcium Total Bilirubin AST ALT Alkaline Phosphatase Total Protein Albumin Globulin Albumin/Globulin Ratio Triglycerides 69 Cholesterol 192 LDL Cholesterol, Calc 136 VLDL Cholesterol, Calc 14 HDL Cholesterol 42 Cholesterol/HDL Ratio 5 TSH HCG, Qual Urine Color Urine Appearance Urine pH Ur Specific [place] Urine Protein Urine Glucose (UA) Urine Ketones Urine Blood Urine Nitrite Urine Bilirubin Urine Urobilinogen Ur Leukocyte Esterase Salicylates Urine Opiates Screen Ur Methadone, Qual Acetaminophen Urine Barbiturates Ur Phencyclidine (PCP) U Amphetamin/Meth Scrn MDMA (Ecstasy) Screen U Benzodiazepines Scrn [place] 0.5 L Ur Cocaine Metabolite U Marijuana (THC) Screen Ethyl Alcohol mg/dL COVID-19 Eval Order SARS-CoV-2, RNA, NAAT Hospital Course (1) Bipolar 1 disorder, depressed: (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 Dispose of hoarded medications. 06/29/21: successful family session. Continue current meds and treatment plan. 06/28/21: coordinated care with outpatient prescriber, discussed titrating lithium to level 0.8 minimum prior to any retrial of a low dose of less activating SSRI (ex 12.5 or 25 mg Luvox) with very slow titration in the future if needed. [place] level ordered for 07/01/21. 06/27/21: official starting dose of [place] 300 mg BID, shift previous total daily dose of Risperdal to 1.5 mg po qhs. Patient is agreeable to an EKG, syncopal episodes sounds ED related but will evaluate Qtc. Patient's HEALS appointment will need rescheduled. 06/26/21: The patient was admitted to the [facility] ([facility] mental health unit) on q15 min checks (behavioral with suicide precautions) for safety. The patient will participate in group, recreational, and milieu therapies and will be offered additional individual and family sessions as clinically appropriate. Risks/benefits/alternatives reviewed re: Risperdal and lithium. Discussion included but was not limited to risks of TD and metabolic abnormalities. Fasting metabolic labs will be ordered in am. She denies galatorrhea or change in menses. Discussion re: lithium surrounded potential teratogenecity and toxicity in OD and need to monitor labs for level and thyroid function. She was agreeable to start lithium 300 mg this hs as previously discussed with [facility] provider. Mental Health & Subst Abuse Tx Psychiatrist Name of Psychiatrist: PRISCILLA Melchor Psychiatrist's Date of Appointment with Psychiatrist: 07/09/21 Time of Appointment with Psychiatrist: 11:30 a.m. Psychiatric Appointment Comment: In person Therapist Name of Therapist: PRISCILLA Calabrese Therapist's Date of Therapist Appointment: 07/01/21 Time of Therapist Appointment: 1:00 PM Therapy Appointment Comment: Will email you link for telehealth [employer] Name of [employer] T[employer] Shader: [employer] [facility] [employer] Joe Moore Phone Number for [employer] T[employer] Shader: [phone] Date of Appointment with [employer] Tile Shader: 07/02/21 Time of Appointment with [employer] Tile Shader: 3:00 p.m. Case Management Appointment Comment: [email or web address] Discharge Appointments Primary Care Physician Name Of Family Doctor: [facility] Primary Care Time of Appointment with PCP: Follow up as needed Provider Appointment Comment: [facility] Specialist Name of Specialist: [facility] - DMITRY program - Dr. Esparza Phone Number for Specialist: [phone] Date of Appointment with Specialist: 07/12/21 Time of Appointment with Specialist: 3:40 p.m. Specialty Appointment Comment: [facility] Smoking Cessation Counseling Tobacco Cessation Medication Prescribed at Discharge: Not Applicable/Non-Smoker Contact Information Discharge Discharge Address: [address] [place] [address] Discharge Plan Discharge Items Patient Disposition: Home - Self-Care Reason For Visit: MDD Discharge Diagnosis: bipolar disorder Activity: Resume your previous activity Non-emergency contact: Primary Care Provider, Psychiatrist and Therapist Call non-emergency contact if: you have any medication questions and your symptoms worsen Follow-up/Referrals: [facility] [Primary Care Provider] - Diet: Regular Addtl Attending Provider Instructions: SPECIAL CARE INSTRUCTIONS: 1. Follow through with your scheduled aftercare appointments. If unable to keep an appointment, please call to reschedule. 2. Take your medication only as prescribed. Medication should not be changed or stopped without the approval of your doctor. In the event of worsening symptoms or concerns about side effects, contact your doctor immediately. 3. Utilize new healthy coping skills, anger management skills, and stress management skills learned during your hospitalization. Journal feelings and process them with a support person. Identify stressors or situations that may result in relapse, deterioration or inappropriate behaviors and develop a plan to deal with those issues. 4. If your coping skills are ineffective and you are in crisis, contact your outpatient providers for direction. If unable to reach your providers, please call the [facility] CRISIS LINE AT , go to the [facility] walk-in center at [address], [address], [place], or go to the closest Emergency Room. 5. Avoid alcohol and un-prescribed drugs. 6. You have been provided with the Mental Health Advance Directives Pamphlet for your review. 7. Your condition is stable for discharge to outpatient level of care, but recovery is an ongoing process. Ifthoughts to harm yourself or others return, follow the safety plan developed during your stay. Planning for a safe return home includes securing weapons. Our treatment team recommends weaponsbe removed from the home until your outpatient provider reassesses your progress. In rare cases where the items themselvescannot be removed, guns and ammunitionshould be secured separatelyand keys stored by a reliable personoutside of the home. If you were admitted on an involuntary commitment, the police or other legal authorities may be involved in this process. AFTERCARE APPOINTMENTS: * Please call your insurance company prior to your scheduled appointment to confirm your aftercare providers are covered. Take your insurance information to your appointments. WHO TO CALL AND WHEN: Medical Emergencies: For questions or emergencies related to your hospital stay, please contact the Inpatient Behavioral Health Unit at [phone]. A supervisor microfilm duplicating unit is on-call 08/05 for the Behavioral Health Unit for emergencies At any time you feel your situation is an emergency, you may also call 911 immediately. Pending Studies at Discharge: No Stand-Alone Forms: My [facility], Smoking Cessation Medications and DC Order Prescriptions: New lithium carbonate 300 mg Tablet Extended Release See Rx Instructions .ROUTE .COMPLEX 30 Days Qty: 30 RF: 0 Continued risperidone 0.5 mg tablet See Rx Instructions .ROUTE .COMPLEX RF: 0 [place] (28) 1 tab PO DAILY RF: 0 hydroxyzine HCl 25 mg Tablet 25 mg PO BID PRN (Reason: Panic Attack(S)) RF: 0 Discharge Orders: Discharge Order (Routine); Ordered 07/01/21 Ordered By: Kelle Horton Admission Data Admit Date/Time: 06/25/21 21:58 Attending Provider: Kelle Horton Admit Provider: Kelle Horton Primary Care Provider: [facility] Other Interventions: Discharge Summary Assessment (RN) Last Done: 07/01/21 11:24 PSY Interdisciplinary Discharge Planning Last Done: 07/01/21 11:30 Coding Level of Care Code 73614 D/C day mgmt > 30 min Diagnoses Bipolar 1 disorder, depressed F31.9 Avoidant and restrictive food intake disorder F50.82 Obsessive compulsive disorder F42.9
== END 2021-07-01 11:05 | disposition home or self-care (01) | DRG 885 ==
LOC: ED 16:57 → 3S 21:58 → ED 22:08